=== PATIENT | male | born 1965 | race Caucasian/White ===

== ENCOUNTER 2023-09-30 16:52 | Inpatient (IN) | payer BC, SELFPAY ==
[2023-09-30 12:24] VITALS: BP 160/92
[2023-09-30 13:10] VITALS: BMI 44.8
[2023-09-30 13:17] LABS: % Basophils 0.3 % (0-2); % Eosinophils 0.5 % (0-6); % Immature Granulocytes 0.3 % (0-0.5); % Lymphocytes 5.8 % (20.5-51.1); % Monocytes 14.2 % (1.7-9.3); % Neutrophils 78.9 % (42.2-75.2); Absolute Eosinophils 0.1 10^3/uL (0-0.7); Absolute Lymphocytes 0.5 10^3/uL (1.2-3.4); Absolute Monocytes 1.3 10^3/uL (0.1-0.6); Absolute Neutrophils 7.2 10^3/uL (1.4-6.5); Hematocrit 40.9 % (39.0-52.0); Hemoglobin 14.4 g/dL (13.0-18.0); Mean Corp Hgb Conc. 35.2 g/dL (33.0-37.0); Mean Corpuscular Hgb 30.9 pg (27.0-31.0); Mean Corpuscular Volume 87.8 fL (80.0-94.0); Nucleated Red Blood Cells % 0 % (-); Platelet Count 167 10^3/uL (130-400); Red Blood Cell Count 4.66 10^6/uL (4.70-6.10); Red Cell Dist. Width 13.3 % (11.5-14.5); White Blood Cell Count 9.1 10^3/uL (4.8-10.8)
[2023-09-30 13:25] LABS: ALT (SGPT) 25 U/L (0-50); AST (SGOT) 26 U/L (17-59); Albumin 4.4 g/dl (3.5-5.0); Alkaline Phosphatase 82 U/L (38-126); Blood Urea Nitrogen 21 mg/dl (9-20); Calcium 9.1 mg/dl (8.4-10.2); Carbon Dioxide 25 mmol/L (22-30); Chloride 106 mmol/L (98-107); Estimated Creatinine Clearance 116 ml/min; Glucose 94 mg/dl (70-99); Lipase 45 U/L (23-300); Potassium 3.8 mmol/L (3.5-5.1); Sodium 140 mmol/L (135-145); Total Protein 7.8 g/dl (6.3-8.2); eGFR > 60.00
[2023-09-30] MEDS: NSS 1000 IV ×2 (13:37→18:05)
[2023-09-30] MEDS: DILAUDID 1 MG IV ×3 (13:38→23:17)
[2023-09-30] MEDS: ZOFRAN 4 MG IV (13:38)
--- NOTE | 2023-09-30 14:34 | ED.GENMED ---
History of Present Illness
General
Chief Complaint: Abdominal Symptoms
Source: patient
Exam Limitations: none
Time Seen by Provider: 09/30/23 13:05
Nursing documentation reviewed up to this point in time: agreed with
Travel History
Have you had any contact with someone who has COVID-19?: No
Do you have any symptoms of coronavirus? Fever > 100 degrees, chills, cough, shortness of breath, sore throat, loss of taste or smell, muscle aches, or headache?: No
History of Present Illness
History of Present Illness:
57 Y/O m WITH H/O htn ,hld, s/p lap blaine, umbilical hernia incarceration s/p repair, SBO
here with abdominal pain and nausea/vomiting
says he started 4 days ago overnight and had 2 episodes vomiting and some abdominal discomfort and over the past few days hasn't really had normal appetite
he had some diarrhea this morning and some gas
previously for his SBO he wasn't moving bowels at all, so he isn't sure if this is the same as that or not
but pain is moderate diffuse abdominal pain, no fever, chills, cp, sob, urinary sypmtoms
nothing taken for pain today
has been on wegovy x 2 mo, just upped dose last week
also pulled lower back out while lifting boxes on 09/20. went to pcp on 09/21 and was told to try naproxen and tylenol which he has been doing
he thought maybe the naproxenw as upsetting his stomach
Past History
Past History
ED Past Medical History: HTN
ED Past Surgical History: Cholecystectomy and Other (hernia repair)
Social History
Tobacco: Non-smoker
Alcohol: None
Drug: None
Review of Systems
Review of Systems
Allergies reviewed?: Yes
All Other Systems: Not applicable
Phy Exam
Physical Exam
Physical Exam:
GENERAL: Alert , in no apparent distress
EYE: pupils equal and reactive
NECK: Supple
ENT: o/p clr, mmm.
CARDIAC: Regular rate and rhythm .
LUNGS: Clear breath sounds bilaterally, no acute respiratory distress, no wheezes/rales/rhonchi
ABDOMEN: Soft,distended, nontender, no r/g, no cvat, normal bowel sounds
NEUROLOGICAL: Alert and oriented, no focal neuro deficits
SKIN: Warm and dry, skin intact.
MUSCULOSKELETAL: No edema, well perfused. neg gaye's sign
PSYCH: Normal and appropriate interaction.
Course
Orders/Labs/Results
Orders:
Orders
09/30/23 13:04
IV Insert/Care/Rem.- Treatment PRN
Urinalysis Reflex To Culture Urgent
Date Specimen was Collected: 09/30/23
Time Specimen was Collected: 13:05
09/30/23 13:06
Complete Blood Count/With Diff Urgent
Comprehensive Metabolic Panel Urgent
Lipase Urgent
09/30/23 13:18
CT Abd/Pel (IV only)-DH only Urgent
Comment:
Reason For Exam: ABD PAIN, NAUSEA/VOMITING H/O SBO
0.9% Sodium Chloride 1000 ml [Nss] 1,000 ml IV BOLUS
HYDROmorphone [Dilaudid] 1 mg IV NOW STA
Ondansetron Injectable [Zofran] 4 mg IV NOW STA
09/30/23 15:08
Consult Surgery [SURGICAL CONSULT] Urgent
Consulting Provider: Joaquin Byrne
Was physician already notified: Yes
Abnormal Lab Results
09/30/23
13:06
RBC 4.66 L 10^6/uL
(4.70-6.10)
Absolute Neuts (auto) 7.2 H 10^3/uL
(1.4-6.5)
Absolute Lymphs (auto) 0.5 L 10^3/uL
(1.2-3.4)
Absolute Monos (auto) 1.3 H 10^3/uL
(0.1-0.6)
Neutrophils % 78.9 H %
(42.2-75.2)
Lymphocytes % 5.8 L %
(20.5-51.1)
Monocytes % 14.2 H %
(1.7-9.3)
BUN 21 H mg/dl
(9-20)
Total Bilirubin 3.0 H mg/dl
(0.2-1.3)
09/30/23 13:06
09/30/23 13:06
Vital Signs
Initial and Last Documented VS:
Initial Vital Signs
Temp Pulse Resp BP Pulse Ox
99.9 F 80 16 160/92 95
09/30/23 12:24 09/30/23 12:24 09/30/23 12:24 09/30/23 12:24 09/30/23 12:24
Last Documented Vital Signs
Temp Pulse Resp BP Pulse Ox
99.9 F 80 16 160/92 95
09/30/23 12:24 09/30/23 12:24 09/30/23 12:24 09/30/23 12:24 09/30/23 12:24
MDM/Problems Addressed
Differential Diagnosis Includes:
sbo, partial sbo, gastroenterities
MDM/Problems Addressed:
57 y/o M with h/o hernia repair and sbo last year
here with nausae/vomiting/abdominal pain and some looser stool
started af ew days ago and worse overnight
still passing gas
pain reminds him on sbo
on exam abd distension, no focal tenderness
no active vomiting
stable vitals but borderline temp
wbc normal
lipase normal
ct shows at least partial SBO
d/w dr. byrne, surgery
no NGT for now unless vomiting
bowel rest
ivf
admit medicine
*Critical Care Note
Total Time (30-74mins, 75-104mins- exclusive of procedures): Not Applicable
ED Attending Note
-
Portions of this chart may have been created with voice recognition software.� Occasional wrong word or��sound alike� substitutions may have occurred due to the inherent limitations of voice recognition software.
Discharge Plan
Departure
Patient Disposition: Admit
Date of Disposition: 09/30/23
Time of Disposition: 15:06
Admit to: Med/Surg
Presentation/result/management discussed w/ accepting MD/DO: Hospitalist
Condition: Fair
Covid-19: Not Applicable
Discharge Problem:
Partial small bowel obstruction
Prescriptions:
No Action
escitalopram oxalate 10 mg tablet
10 mg PO DAILY
therapeutic multivitamin Tablet
1 tab PO DAILY
losartan 100 mg Tablet
100 mg PO DAILY
atorvastatin 40 mg Tablet
40 mg PO QPM Qty: 30 0RF
aspirin 81 mg Tablet,Chewable
81 mg PO DAILY Qty: 30 0RF
metoprolol succinate 25 mg Tablet Extended Release 24 Hr
25 mg PO DAILY Qty: 30 0RF
tamsulosin 0.4 mg capsule
0.4 mg PO DAILY Qty: 30 0RF
furosemide 40 mg Tablet
40 mg PO DAILY PRN (Reason: fluid retention)
spironolactone 25 mg Tablet
25 mg PO DAILY PRN (Reason: fluid retention)
acetaminophen [acetaminophen] 325 mg tablet
650 mg PO Q6HPRN PRN (Reason: mild pain) Qty: 14 0RF
tramadol 50 mg tablet
25 mg PO Q6HPRN PRN (Reason: severe pain/breakthrough pain) Qty: 16 0RF
ibuprofen 600 mg tablet
600 mg PO Q6H PRN (Reason: pain) Qty: 14 0RF
Referrals:
Everton Lala MD [Family Provider] -
Interventions
Interventions:
*Risk Screen - Suicide Last Done: 09/30/23 12:24
*General Assessment Last Done: 09/30/23 12:24
*Neglect/Abuse Screening Last Done: 09/30/23 12:24
ED- Fall Risk Assessment Last Done: 09/30/23 13:13
*ED COVID-19 Vaccine History Last Done: 09/30/23 13:11
GE-Iilpmd-Sbkxkkxpkt Assessment Last Done: 09/30/23 13:13
Discharge Date and Time
Print Language: MALAY
--- NOTE | 2023-09-30 16:10 | HPS.HSE ---
Family Physician
-
Family Physician: Everton Bocanegra [facility]
Chief Complaint
-
Abd pain.
History of Present Illness
57 Y/O man with H/O lap blaine, umbilical hernia incarceration s/p repair, and past SBO comes in with abdominal pain and nausea/vomiting. He says the pain started 4 days ago, overnight and has had 2 episodes of vomiting and some abdominal discomfort
and decreased appetite. He has had some diarrhea and some gas. Previously, for the past episode of SBO, he wasn't moving bowels at all. The pain is moderate, diffuse abdominal pain. He reports no fever, chills, cp, sob, or urinary symptoms. He
has taken nothing taken for pain today. He has been on wegovy x 2 mo, and increased the dose last week. He also pulled lower back out while lifting boxes on early september. CT in the ED showed:
Gastric dilatation and mild dilatation of proximal to mid small bowel with air-fluid levels extending to the umbilicus with a knuckle of small bowel//small bowel loop seen likely representing site of at least partial small bowel obstruction.
No free air.
Virtually completely empty large bowel with sigmoid diverticulosis.
Slightly increased mild pericardial thickening versus tiny pericardial effusion.
Small simple right renal cyst.
Additional findings again noted: Prior cholecystectomy, incidental small accessory spleen and stable 0.9 cm nodule in the lingula of the left lung.
At the time of my interview, he was comfortable after having received Dilaudid.
Medical History
Past Medical History
Past Medical History: Reports Other
Additional Past Medical History:
Essential HTN
Cholecystectomy
hernia repair
BMI 45
HFpEF
BPH
Pneumonia
Depression
Past Surgical History: Reports Other
Additional Past Surgical History:
See above
Social History
Tobacco: Non-smoker
Alcohol: None
Drug: None
Living: With Family
Employment: Employed
Family History
Family History: Not pertinent
Allergies / Home Medications
Allergies reflects when Allergies were last updated in [employer].
Home Medications with original date entered in [employer]
Allergy/Medication List:
Allergies
Allergy/AdvReac Type Severity Reaction Status Date / Time
No Known Allergies Allergy Verified 09/30/23 12:24
Home Medications
escitalopram oxalate 10 mg tablet 10 mg PO DAILY Depression 07/08/22
therapeutic multivitamin 1 tab PO DAILY Supplement 07/08/22
losartan 100 mg tablet 100 mg PO DAILY 11/12/22
aspirin 81 mg chewable tablet 81 mg PO DAILY #30 tabs 11/16/22
atorvastatin 40 mg tablet 40 mg PO QPM #30 tabs 11/16/22
metoprolol succinate 25 mg tablet,extended release 24 hr 25 mg PO DAILY #30 tabs 11/16/22
tamsulosin 0.4 mg capsule 0.4 mg PO DAILY Urinary issue #30 caps 11/16/22
acetaminophen 325 mg tablet 650 mg (2 x 325 mg) PO Q6HPRN PRN mild pain #14 tabs 02/23/23
furosemide 40 mg tablet 40 mg PO DAILY PRN fluid retention 02/23/23
ibuprofen 600 mg tablet 600 mg PO Q6H PRN pain #14 tabs 02/23/23
spironolactone 25 mg tablet 25 mg PO DAILY PRN fluid retention 02/23/23
tramadol 50 mg tablet 25 mg (1/2 x 50 mg) PO Q6HPRN PRN severe pain/breakthrough pain #16 tabs 02/23/23
Review of Systems
-
History Source: Patient
A 12 point ROS was completed and negative except as noted: Yes
Physical Exam
Vital Signs
Vital Signs
Temp Pulse Resp BP Pulse Ox
99.9 F 80 16 160/92 95
09/30/23 12:24 09/30/23 12:24 09/30/23 12:24 09/30/23 12:24 09/30/23 12:24
Physical Exam
General: Well Developed, Well Nourished, No Apparent Distress, Comfortable and Morbidly Obese
HEENT: NormoCephalic, Moist mucous membranes, Nose Appears Normal and Ears Appear Normal
Respiratory: Clear
Cardiac: S1/S2 and Regular Rhythm
GI: Soft and Non Distended
Musculoskeletal: No Clubbing, No Cyanosis and No Edema
Skin: Warm and Dry; No Rash or Jaundice
Neuro: Awake, Alert, Oriented and AO x 3
Psych: Calm
Laboratory Results
-
09/30/23 13:06
09/30/23 13:06
Laboratory Results
Total Bilirubin 3.0 mg/dl (0.2-1.3) H 09/30/23 13:06
AST 26 U/L (17-59) 09/30/23 13:06
ALT 25 U/L (0-50) 09/30/23 13:06
Alkaline Phosphatase 82 U/L (38-126) 09/30/23 13:06
Lipase 45 U/L (23-300) 09/30/23 13:06
Data Reviewed
-
Lab Data: Labs Reviewed by me
Impression/Plan
-
IMPRESSION:
57 man with partial SBO. See CT results above.
PLAN:
1. Partial SBO
NPO
IV saline
Pain control as needed
NG tube if vomiting develops
2. H/o HFpEF
Hold Po lasix, switch to IV lasix
3. Essential HTN
Hold po meds
Treat pain
If BP control still needed, give IV bp meds
4. Otherwise hold PO meds
5. Obesity with BMI of 45.
On injectable GLP-1
Will be npo, brat diet when possible
Continue outpt obesity management when discharged.
Full code
VCD for DVTp
[2023-09-30 17:04] VITALS: BP 116/62
[2023-09-30 18:03] VITALS: BP 139/98; BMI 46.5
[2023-09-30 18:08] VITALS: BMI 46.5
[2023-09-30] MEDS: FLOMAX 0.400000000000000022 MG PO (18:19)
[2023-09-30 19:55] VITALS: BP 119/65; BP 128/68; BP 131/68; PULSE 70; PULSE 73; PULSE 78
[2023-09-30 23:48] VITALS: BP 135/73; BP 138/76; BP 147/82; PULSE 68; PULSE 70; PULSE 75
[2023-10-01] MEDS: NSS 1000 IV (04:50)
[2023-10-01 07:06] LABS: Hemoglobin 13.1 g/dL (13.0-18.0); Mean Corp Hgb Conc. 33.6 g/dL (33.0-37.0); Mean Corpuscular Hgb 30.7 pg (27.0-31.0); Mean Corpuscular Volume 91.3 fL (80.0-94.0); Mean Platelet Volume 10.1 fL (7.4-10.4); Platelet Count 155 10^3/uL (130-400); Red Blood Cell Count 4.27 10^6/uL (4.70-6.10); Red Cell Dist. Width 13.4 % (11.5-14.5); White Blood Cell Count 4.9 10^3/uL (4.8-10.8)
[2023-10-01 07:23] LABS: Blood Urea Nitrogen 19 mg/dl (9-20); Calcium 8.6 mg/dl (8.4-10.2); Carbon Dioxide 24 mmol/L (22-30); Chloride 110 mmol/L (98-107); Estimated Creatinine Clearance 115 ml/min; Glucose 77 mg/dl (70-99); Sodium 142 mmol/L (135-145); eGFR > 60.00
[2023-10-01 07:32] VITALS: BP 145/81
[2023-10-01] MEDS: LASIX 20 MG IV (08:27)
[2023-10-01] MEDS: LEXAPRO 10 MG PO (08:27)
[2023-10-01] MEDS: DILAUDID 1 MG IV ×2 (11:03→23:04)
--- NOTE | 2023-10-01 12:26 | W.PN.HOSP.TC ---
Today's Communication/Plan
-
monitor vitals
see plan
trial of clears
hold IV lasix
pain control
Assessment / Plan
Assessment / Plan
Abdominal pain, nausea and vomiting secondary to partial SBO
CT noted
surgery following
trial of clears
per patient; 2 liquid BM's; monitor
History of umbilical hernia incarceration status postrepair
H/o HFpEF, does not appear to be in exacerbation
IV Lasix given 09/30. Will hold further IV Lasix and monitor volume status
At home patient is on as needed Lasix
Essential hypertension
hold losartan,metoprolol for now
monitor
Morbid obesity, BMI greater than 45
hx of depression
BPH
cw flomax
Full code
DVTppx
SCD's
General: Well Developed, Well Nourished, No Apparent Distress, Comfortable and Morbidly Obese
HEENT: NormoCephalic, Moist mucous membranes
Respiratory: Clear
Cardiac: S1/S2 and Regular Rhythm
GI: Soft and Non Distended
Musculoskeletal: No Clubbing, No Cyanosis and No Edema
Neuro: Awake, Alert, Oriented and AO x 3
Psych: Calm
Anticipated Discharge: 24 - 48 hours
Subjective/Interval History
-
Date of Service: October 01, 2023
Has abdominal bloating
Objective Data
-
Labs:
Laboratory Results
10/01/23
06:39
WBC 4.9
Hgb 13.1
Hct 39.0
Plt Count 155
Sodium 142
Potassium 4.0
Chloride 110 H
Carbon Dioxide 24
BUN 19
Creatinine 0.9
Glucose 77
Calcium 8.6
Vital Signs:
Vital Signs
Temp Pulse Resp BP Pulse Ox
98.6 F 70 16 145/81 95
10/01/23 07:32 10/01/23 07:32 10/01/23 07:32 10/01/23 07:32 10/01/23 07:32
I&O
09/30/23 10/01/23 10/02/23
06:59 06:59 06:59
Intake Total 0 / 0
Balance 0 / 0
--- NOTE | 2023-10-01 12:46 | CM ---
Patient seen at bedside, Patient states that he lives with his son and daughter in law. Patient has no DME at home and states that he is independent of ADL's and IADL's. Patient PCP is Dr. Lala and he uses the [facility] in [place]. Patient stated
that his plan is to go home with no needs. CM will continue to follow for discharge planning needs.
Plan; home with no needs. watch for VN needs.
[2023-10-01] MEDS: NSS IV (13:10)
--- NOTE | 2023-10-01 13:26 | CON.GS ---
Consultation
-
Date/Time Consultation Requested: 10/01/23 [id number]
Performing Provider: Gee pryor Chavez
Medical History
-
Chief Complaint: abdominal pain with n/v
History of Present Illness:
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 Toscano with placement of 20 x [address] mesh who presents with
abdominal discomfort with nausea over the past 5 days. About 2 weeks ago, he notes he was moving boxes and began having back pain and saw his PCP who started him on NSAIDs which he discontinued when he began having abdominal discomfort. He notes
intermittent nausea and vomiting with some diarrhea. Since onset of symptoms, he has been cutting back on PO intake and sticking with mostly liquids without much benefit at home causing him to present for further evaluation. He does report that his
daughter in law has also been having similar symptoms as well. Overnight, his symptoms have improved. He is passing flatus and loose stools but nausea and vomiting have resolved. Abdomen is soft and nontender without hernia noted.
Past Medical History
Past Medical History: CAD and HTN
Past Surgical History: Cholecystectomy
Social History
Tobacco: Non-Smoker
Alcohol: None
Drug: None
Living: With Family
Family History
Family History: Reviewed & Not Pertinent
Allergies / Home Medications
Allergy/AdvReac Type Severity Reaction Status Date / Time
No Known Allergies Allergy Verified 09/30/23 12:24
�Medication �Instructions �Recorded �Confirmed �Type
escitalopram oxalate 10 mg tablet 10 mg PO DAILY Depression 07/08/22 09/30/23 History
therapeutic multivitamin 1 tab PO DAILY Supplement 07/08/22 09/30/23 History
losartan 100 mg tablet 100 mg PO QPM 11/12/22 09/30/23 History
aspirin 81 mg chewable tablet 81 mg PO DAILY #30 tabs 11/16/22 09/30/23 Rx
atorvastatin 40 mg tablet 40 mg PO QPM #30 tabs 11/16/22 09/30/23 Rx
furosemide 40 mg tablet 40 mg PO DAILYPRN PRN fluid 02/23/23 09/30/23 History
retention
acetaminophen 325 mg tablet 650 mg PO Q6HPRN PRN back pain 09/30/23 09/30/23 History
empagliflozin 10 mg tablet 10 mg PO DAILY 09/30/23 09/30/23 History
(Jardiance)
metoprolol succinate 25 mg 25 mg PO QPM 09/30/23 09/30/23 History
tablet,extended release 24 hr
semaglutide (weight loss) 1 mg/0.5 1 mg SC FR 09/30/23 09/30/23 History
mL subcutaneous pen injector
(Wegovy)
tamsulosin 0.4 mg capsule 0.4 mg PO QPM Urinary issue 09/30/23 09/30/23 History
Review of Systems
-
History Source: Patient
All other systems: Negative unless noted
A 10 point review of systems was completed, and was negative except as per HPI.
Physical Exam
Vital Signs
Temp Pulse Resp BP Pulse Ox
98.6 F 70 16 145/81 95
10/01/23 07:32 10/01/23 07:32 10/01/23 07:32 10/01/23 07:32 10/01/23 07:32
09/30/23 10/01/23 10/02/23
06:59 06:59 06:59
Actual Weight 130.748 kg
Body Mass Index (BMI) 46.5
Lab Results
10/01/23 06:39
10/01/23 06:39
WBC 4.9 10^3/uL (4.8-10.8) 10/01/23 06:39
Hgb 13.1 g/dL (13.0-18.0) 10/01/23 06:39
Hct 39.0 % (39.0-52.0) 10/01/23 06:39
Plt Count 155 10^3/uL (130-400) 10/01/23 06:39
Abs Immat Gran (auto) 0.0 10^3/uL (0-0.05) 09/30/23 13:06
Neutrophils % 78.9 % (42.2-75.2) H 09/30/23 13:06
Physical Exam
General: Well Developed and Well Nourished
Respiratory: Non Labored Respirations
GI: Soft, Non Tender, Non Distended, Obese and Other (No umbilical hernia is present)
Neuro: Awake, Alert and AO x 3
Psych: Calm
Assessment / Plan
-
57 yo male with h/o HFpEF, BPH, and recurrent UH at port site from prior cholecystectomy with repair x3, the most recent of which was in February with Dr. Toscano with placement of 20 x [address] mesh who presents with abdominal discomfort
with nausea over the past [address] imaging with likely gastroenteritis given sick contacts vs pSBO with ?hernia recurrence noted on CT read. On exam and personal review, recurrent hernia does not appear to be present. No abdominal pain or nausea.
Passing flatus/stool. AFVSS. No leukocytosis.
--Clear liquids initiated, advance to fulls for dinner if tolerating
--D/C IVF once tolerating PO
--Home meds as per primary team
[2023-10-01 15:50] VITALS: BP 138/83
[2023-10-01] MEDS: FLOMAX 0.400000000000000022 MG PO (17:32)
[2023-10-01 23:48] VITALS: BP 164/94
[2023-10-02 00:15] VITALS: BP 158/91
[2023-10-02 07:34] LABS: % Basophils 0.7 % (0-2); % Eosinophils 2.9 % (0-6); % Immature Granulocytes 0.5 % (0-0.5); % Monocytes 15.5 % (1.7-9.3); % Neutrophils 61.4 % (42.2-75.2); Absolute Eosinophils 0.2 10^3/uL (0-0.7); Absolute Monocytes 0.9 10^3/uL (0.1-0.6); Absolute Neutrophils 3.4 10^3/uL (1.4-6.5); Hematocrit 39.1 % (39.0-52.0); Hemoglobin 13.3 g/dL (13.0-18.0); Mean Corpuscular Hgb 31.2 pg (27.0-31.0); Mean Corpuscular Volume 91.8 fL (80.0-94.0); Mean Platelet Volume 10.3 fL (7.4-10.4); Nucleated Red Blood Cells % 0 % (-); Platelet Count 154 10^3/uL (130-400); Red Blood Cell Count 4.26 10^6/uL (4.70-6.10); Red Cell Dist. Width 13.1 % (11.5-14.5); White Blood Cell Count 5.5 10^3/uL (4.8-10.8)
[2023-10-02] MEDS: LEXAPRO 10 MG PO (07:56)
[2023-10-02 08:12] LABS: Blood Urea Nitrogen 16 mg/dl (9-20); Calcium 8.6 mg/dl (8.4-10.2); Carbon Dioxide 28 mmol/L (22-30); Chloride 103 mmol/L (98-107); Estimated Creatinine Clearance 103 ml/min; Glucose 75 mg/dl (70-99); Potassium 3.4 mmol/L (3.5-5.1); Sodium 140 mmol/L (135-145); eGFR > 60.00
[2023-10-02 08:47] VITALS: BP 173/87
--- NOTE | 2023-10-02 10:30 | W.PN.HOSP.TC ---
Addendum entered and electronically signed by Hermilo Rangel MD 10/02/23 11:15:
should read as replete potassium
time of discharge 37 minutes
Original Note:
Today's Communication/Plan
-
Monitor vital signs and see plan
if tolerate low residue diet then discharge
Restart blood pressure medications
Repeat potassium
Assessment / Plan
Assessment / Plan
Abdominal pain, nausea and vomiting secondary to partial SBO
CT noted
surgery following
Now tolerating low-res diet
Now with bowel movement and passing flatus; monitor
History of umbilical hernia incarceration status postrepair
H/o HFpEF, does not appear to be in exacerbation
IV Lasix given 09/30. Will hold further IV Lasix and monitor volume status
At home patient is on as needed Lasix
Essential hypertension
restart losartan,metoprolol
monitor
Hypokalemia
Replete
Morbid obesity, BMI greater than 45
hx of depression
BPH
cw flomax
Full code
DVTppx
SCD's
General: Well Developed, Well Nourished, No Apparent Distress, Comfortable and Morbidly Obese
HEENT: NormoCephalic, Moist mucous membranes
Respiratory: Clear
Cardiac: S1/S2 and Regular Rhythm
GI: Soft and Non Distended
Musculoskeletal: No Clubbing, No Cyanosis and No Edema
Neuro: Awake, Alert, Oriented and AO x 3
Psych: Calm
Anticipated Discharge: Today
Subjective/Interval History
-
Date of Service: October 02, 2023
Denies pain
Objective Data
-
Labs:
Laboratory Results
10/02/23
05:35
WBC 5.5
Hgb 13.3
Hct 39.1
Plt Count 154
Sodium 140
Potassium 3.4 L
Chloride 103
Carbon Dioxide 28
BUN 16
Creatinine 1.0
Glucose 75
Calcium 8.6
Vital Signs:
Vital Signs
Temp Pulse Resp BP Pulse Ox
99.1 F 69 18 173/87 98
10/02/23 08:47 10/02/23 08:47 10/02/23 08:47 10/02/23 08:47 10/02/23 08:47
I&O
10/01/23 10/02/23 10/03/23
06:59 06:59 06:59
Intake Total 0 / 0 1440 / 1440
Output Total 1300 / 1300
Balance 0 / 0 140 / 140
[2023-10-02] MEDS: KCL 20 MEQ PO (10:36)
[2023-10-02] MEDS: LOW STRENGTH ASPIRIN 81 MG PO (10:39)
[2023-10-02] MEDS: APRESOLINE 5 MG IV (10:42)
--- NOTE | 2023-10-02 10:58 | W.PN.GS2 ---
Addendum entered and electronically signed by Jordi Toscano MD 10/02/23 11:50:
I saw and examined the patient independently.
The resident 's note was reviewed and I agree with the note, assessment and plan except where noted below.
Comment: This is a 57-year-old male well-known to me status post recurrent umbilical hernia repairs x 3 most recently in February 2023 with excision of previous mesh and placement of IPUM 20 x [address] coated polypropylene mesh. On review the
CT scan there certainly appears to be a transition point near the repair but no recurrence noted on exam or on imaging. Patient is tolerating a low residue diet and passing flatus with robust of bowel movements.
Okay to DC from surgical standpoint.
Patient to follow-up with me in 2 to 3 weeks.
All questions answered, patient agreeable to plan of care above.
Original Note:
Today's Communication / Plan
-
Okay to discharge from surgical standpoint.
Follow-up with Dr. Ariza in 2 to 3 weeks.
Assessment / Plan
-
57-year-old male with recurrent umbilical hernia incarceration at port site s/p repairs x3. Patient reports abdominal pain has resolved, tolerating low residue diet, passing flatus and having bowel movements. Denies nausea, and vomiting.
Plan:
Abdominal pain resolved. In no acute distress. Tolerating low residue diet, no concerns for abdominal obstruction.
Passing flatus, and having bowel movements.
Patient afebrile, with normal white counts and stable vitals.
Okay to discharge from surgical standpoint.
Follow-up with Dr. Toscano in 2 to 3 weeks.
Subjective Data
-
Date of Service: October 02, 2023
Objective Data
-
Intake and Output
10/01/23 10/02/23 10/03/23
06:59 06:59 06:59
Intake Total 0 / 0 1440 / 1440
Output Total 1300 / 1300
Balance 0 / 0 140 / 140
Intake:
Oral fluids 0 / 0 1440 / 1440
Output:
Urine, Voided 1300 / 1300
Other:
Number of approximated MODERATE 1 3
amounts of urine
Vital Signs
Temp Pulse Resp BP Pulse Ox
99.1 F 70 18 166/86 98
10/02/23 08:47 10/02/23 10:42 10/02/23 08:47 10/02/23 10:42 10/02/23 08:47
Lab Results
10/02/23 05:35
10/02/23 05:35
Calcium 8.6 mg/dl (8.4-10.2) 10/02/23 05:35
Total Bilirubin 3.0 mg/dl (0.2-1.3) H 09/30/23 13:06
AST 26 U/L (17-59) 09/30/23 13:06
ALT 25 U/L (0-50) 09/30/23 13:06
Alkaline Phosphatase 82 U/L (38-126) 09/30/23 13:06
Total Protein 7.8 g/dl (6.3-8.2) 09/30/23 13:06
Albumin 4.4 g/dl (3.5-5.0) 09/30/23 13:06
Physical Exam
-
General: Awake, alert and oriented x3, not in distress and holds appropriate conversation.
Respiratory: Normal respiratory effort, in no respiratory distress.
Gastrointestinal: Nontender, no guarding or rigidity.
Skin: Warm and dry.
Psychiatric: Normal mood, normal affect, normal judgement and insight and normal mentation.
--- NOTE | 2023-10-02 13:25 | W.DCSUMMARY ---
Discharge Summary
Discharge Data
Date of Admission: 09/30/23
Date of Discharge: 10/02/23
-
Pending Results: No
Hospital Course
57-year-old male with past medical history of CHF, morbid obesity, depression BPH, small bowel obstruction came to the hospital abdominal pain, nausea and vomiting where CT scan was consistent with partial small bowel obstruction. Patient was seen
by surgery throughout hospitalization. Initially patient was managed with conservative management with IV fluids and bowel rest. Over time patient symptoms continue to improve and he was able to tolerate low residue diet. Once he was able to
tolerate diet he was then deemed stable to be discharged home with instructions to follow-up with all his physicians outpatient.
Discharge Plan
-
Patient Disposition: Home (Routine Discharge)
Discharge Diagnosis/Procedures: Partial small bowel obstruction
Hypokalemia
Diet: Low Fiber
Activity: No restrictions
Driving Restrictions: As prior to admission
Bathing Restrictions: None
Referrals:
YarelyEverton mota MD [Family Provider] - in less than 1 week
Prescriptions:
Continued
escitalopram oxalate 10 mg tablet
10 mg PO DAILY
therapeutic multivitamin Tablet
1 tab PO DAILY
losartan 100 mg Tablet
100 mg PO QPM
atorvastatin 40 mg Tablet
40 mg PO QPM Qty: 30 0RF
aspirin 81 mg Tablet,Chewable
81 mg PO DAILY Qty: 30 0RF
furosemide 40 mg Tablet
40 mg PO DAILYPRN PRN (Reason: fluid retention)
tamsulosin 0.4 mg capsule
0.4 mg PO QPM
metoprolol succinate 25 mg tablet extended release 24 hr
25 mg PO QPM
Jardiance 10 mg Tablet
10 mg PO DAILY
Wegovy 1 mg/0.5 mL Pen Injector
1 mg SC FR
acetaminophen 325 mg tablet
650 mg PO Q6HPRN PRN (Reason: back pain)
Discharge Orders:
Discharge Patient (As Directed); Ordered 10/02/23
Ordered By: Hermilo Rangel
Discharge Date and Time
Discharge Date/Time: 10/02/23 14:40
Print Language: URDU
--- NOTE | 2023-10-02 14:16 | PTCARENOTE ---
IV discontinued. Discharge paperwork printed and reviewed with patient who verbalized understanding. Pt transported off the floor via wheelchair with all belongings from the room.
--- NOTE | 2023-10-02 16:44 | CM ---
Patient with Dx partial SBO.
Met with patient who was preparing for discharge.
The patient says he feels ready for discharge home today. His son and DIL will provide a ride home today.
No CM d/c needs identified.
Plan home today.
== END 2023-10-02 14:40 | disposition home or self-care (01) | DRG 389 ==
LOC: 4 EAST ACU 16:52
PROVIDERS: ADMITTING PHYSICIAN Internal Medicine; ATTENDING PHYSICIAN Internal Medicine; CONSULT PHYSICIAN Surgery; EMERGENCY PHYSICIAN Emergency Medicine; FAMILY PHYSICIAN Family Medicine
DX: K56.600 Partial intestinal obstruction, unspecified as to cause (principal); I50.32 Chronic diastolic (congestive) heart failure; Z68.42 Body mass index [BMI] 45.0-49.9, adult; I11.0 Hypertensive heart disease with heart failure; E66.01 Morbid (severe) obesity due to excess calories; E87.6 Hypokalemia; N40.0 Benign prostatic hyperplasia without lower urinary tract symptoms; K57.30 Diverticulosis of large intestine without perforation or abscess without bleeding; N28.1 Cyst of kidney, acquired; Z79.82 Long term (current) use of aspirin
CPT/HCPCS: 74177; 80048; 80053; 83690; 85025; 85027; 96361; 96374; 96375; 99285; Q9967